=== PATIENT | female | born 1985 | race Caucasian/White ===

== ENCOUNTER 2022-03-18 15:34 | Emergency (ER) | payer SELFPAY ==
[~2022-03-18] VITALS: Ht 152.4 cm; Wt 68.0 kg
[2022-03-18 15:57] VITALS: BP 140/77
== END 2022-03-18 18:58 | disposition left against medical advice (07) ==
LOC: ER 15:34
DX: Z53.21 Procedure and treatment not carried out due to patient leaving prior to being seen by health care provider (principal)